=== PATIENT | female | born 1990 ===

== ENCOUNTER 2019-08-29 11:50 | Inpatient (IN) | payer BC ==
[2019-08-29 13:11] VITALS: BMI 26.3
[2019-08-29 14:08] LABS: EOS % 0.1 % (0-4.5); HEMOGLOBIN 12.2 GM/dL (10.7-15.3); LYMPH % 7.9 % (8-40); MCH 30.6 pg (25.7-33.7); MCHC 33.8 g/dl (32.0-36.0); MEAN CELL VOLUME 90.6 fl (80-96); MEAN PLT VOLUME 9.9 fl (7.5-11.1); MONO % 5.4 % (3.8-10.2); NEUT % 86.6 % (42.8-82.8); PLATELET COUNT 205 K/MM3 (134-434); RBC 3.98 M/mm3 (3.60-5.2); WHITE BLOOD COUNT 16.1 K/mm3 (4.0-10.0)
[2019-08-29] MEDS ORDERED: OXYTOCIN 30 UNITS in 0.9% NS 30 UNIT/500 ML INFUS.BAG IVPB ONE (14:22)
[2019-08-29 14:37] LABS: BLOOD UREA NITROGEN 5.6 mg/dL (7-18); CALCIUM 8.7 mg/dL (8.5-10.1); CREATININE 0.5 mg/dL (0.55-1.3); POTASSIUM 4.7 mmol/L (3.5-5.1)
[2019-08-29 14:39] LABS: INR 0.91 (0.83-1.09); PROTHROMBIN TIME (PATIENT) 10.7 SEC (9.7-13.0)
[2019-08-29 14:41] LABS: ACTIVATED PTT 27.2 SECONDS (25.2-36.5)
[2019-08-29] MEDS ORDERED: ELECTROLYTE-148 SOLN 1,000 ML IV SCH (15:45)
[2019-08-29] MEDS ORDERED: FENTANYL/BUPIVACAINE/NS/PF - PCEA - 50 ML DISP.SYRIN EP ONE (15:46)
--- NOTE | 2019-08-29 15:51 | HP ---
Past Medical History - Primary Care Physician PCP:: Shaquille White - Admission Chief Complaint: 28yo P0 with at EGA 39w1d admitted with early spontaneous labor. History of Present Illness: SROM with clear fluid at 9:30am. 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: No: Alzheimer's, CVA, Dementia, Migraine, Multiple Sclerosis, Peripheral Neuropathy, Parkinson's, Seizure, Syncope, TIA, Vertigo, Other Cardiovascular: No: AFIB, Aneurysm, Aortic Insufficiency, Aortic Stenosis, CAD, CHF, Deep Vein Thrombosis, HTN, Hyperlipdemia, [place], Mitral Insufficiency, Mitral Stenosis, Murmur, Pulmonary Hypertension, Other Pulmonary: No: Asthma, Bronchitis, Cancer, COPD, O2 Dependent, Pneumonia, Previously Intubated, Pulmonary Embolus, Pulmonary Fibrosis, Sleep Apnea, Other Gastrointestinal: No: Ascites, Cancer, Constipation, Crohn's Disease, Diverticulitis, Diverticulosis, Esophageal Varices, Gastritis, GERD, GI Bleed, Hemorrhoids, Hiatal Hernia, Inflamatory Bowel Disease, Irritable Bowel Disease, Pancreatitis, Peptic Ulcer Disease, Ulcerative Colitis, Other Hepatobiliary: No: Cirrhosis, Cholelithiasis, Cholecystitis, Choledocholithiasis , Hepatitis A, Hepatitis B, Hepatitis C, Other Renal/: No: Renal Failure, Renal Inusuff, BPH, Cancer, Hematuria, Hemodialysis , Neurogenic Bladder, Renal Calculi, UTI, Other Reproductive: No: Ectopic , Endometriosis, Fibroids, PID, Polycystic Ovary Syndrome, Postmenopausal, Other ...: 1 ...Para: 0 ...Term: 0 ...: 0 ...Spon : 0 ...Induced : 0 ...Multiple Gestation: 0 ...EDC by Sono: 09/04/19 Heme/Onc: No: Anemia, B12 Deficiency, Bleeding Disorder, Cancer, Current Chemotherapy, Current Radiation Therapy, Hemochromatosis, Hypercoaguable State, Myeloproliferative Synd, Sickle Cell Disease, Sickle Cell Trait, Thrombocytopenia, Other Infectious Disease: No: AIDS, C-Diff, Herpes Zoster, HIV, MRSA, STD's, Tuberculosis, VREF, Other Psych: No: Addictions, Anxiety, Bipolar, Depression, Panic, Psychosis, Schizophrenia, Other Musculoskeletal: No: Bursitis, Chronic low back pain, Hemiparesis, Hemiplegia, Osteoarthritis, Paraplegia, Other Rheumatology: No: Fibromyalgia, Gout, Lupus, Rheumatoid Arthritis, Sarcoidosis, Vasculitis, Other ENT: No: Allergic Rhinitis, Sinusitis, Other Endocrine: No: Woods's Disease, Jaye's Disease, Diabetes Insipidus, Diabetes Mellitus, Hyperparathyroidism, Hyperthyroidism, Hypothyroidism, Osteopenia, SIADH, Other Dermatology: No: Basal Cell, Cellulitis, Eczema, Melanoma, Psoriasis, Squamous Cell, Other - Past Surgical History Past Surgical History: Yes: None Hx Myomectomy: No Hx Transabdominal Cerclage: No - Smoking History Smoking history: Never smoked Have you smoked in the past 12 months: No - Alcohol/Substance Use Hx Alcohol Use: No History of Substance Use: reports: None - Social History Usual Living Arrangement: Yes: With Spouse Do you think of yourself as: Straight/Heterosexual ADL: Independent History of Recent Travel: No Home Medications - Allergies Allergies/Adverse Reactions: Allergies Allergy/AdvReac Type Severity Reaction Status Date / Time No Known Allergies Allergy Verified 08/29/19 12:09 - Home Medications Home Medications: Ambulatory Orders Vits96/Iron Fum/Folic [ Tablet] 1 tab PO DAILY 08/29/19 Family Medical History Family History: Denies Review of Systems - Review of Systems Constitutional: reports: Other (Labor pain) Eyes: reports: No Symptoms HENT: reports: No Symptoms Neck: reports: No Symptoms Cardiovascular: reports: No Symptoms Respiratory: reports: No Symptoms Gastrointestinal: reports: No Symptoms Genitourinary: reports: No Symptoms Breasts: reports: No Symptoms Reported Musculoskeletal: reports: No Symptoms Integumentary: reports: No Symptoms Neurological: reports: No Symptoms Endocrine: reports: No Symptoms Hematology/Lymphatic: reports: No Symptoms Psychiatric: reports: No Symptoms Pain Intensity: 10 Physical Exam - Maternity Vital Signs: Vital Signs Temperature 98.9 F 08/29/19 15:00 Pulse Rate 86 08/29/19 15:00 Respiratory Rate 20 08/29/19 15:00 Blood Pressure 123/59 L 08/29/19 15:00 O2 Sat by Pulse Oximetry (%) Constitutional: Yes: Well Nourished, Moderate Distress (with contractions) Eyes: Yes: WNL, Conjunctiva Clear, EOM Intact HENT: Yes: WNL, Atraumatic, Normocephalic Neck: Yes: WNL, Supple, Trachea Midline Cardiovascular: Yes: WNL, Regular Rate and Rhythm Lungs: Clear to auscultation, Normal air movement Breast(s): Yes: WNL - Abdominal Exam/OB Fundal Height: 38 Number of Fetuses: Single Presentation: Vertex Contractions: Yes Regularity: Regular Intensity: Mod/Strong Monitor Mode: External Heart Rate (range): 125 Heart Rate Location: Midline Category: I Accelerations: Non-Uniform Decelerations: Variable (occasional) - Vaginal Exam/OB Vaginal Bleediing: Yes Speculum Exam: No Dilatation (cm): 3 Effacement (%): 50 Amniotic Membrane Status: Leaking Nitrazine Test: Positive Amniotic Fluid: Yes: Clear Presentation: Vertex/Position Station: -3 (Gynecoid pelvimetry) - Physical Exam Musculoskeletal: Yes: WNL Extremities: Yes: WNL Edema: No Integumentary: Yes: WNL Deep Tendon Reflex Grade: Normal +2 ...Motor Strength: WNL Psychiatric: Yes: WNL, Alert, Oriented - Labs Lab Results: CBC, BMP 08/29/19 13:45 08/29/19 13:45 Hemorrhage Risk Assessment - Risk Factors Medium Risk Factors: Yes: None High Risk Factors: Yes: None Risk Score: 1 Risk Level: Medium Risk Imaging - Results Ultrasound: Report Reviewed Assessment/Plan 28yo P0 with at EGA 39w1d admitted with early spontaneous labor. Fetus with Category I tracing. Pt is in latent labor. She requested epidural. Anesthesia was called.
[2019-08-29] MEDS ORDERED: LIDO 2%/EPI 1:200000 PRESRVFRE (20 ML SDVIAL) ONE (16:06)
[2019-08-29] MEDS ORDERED: BUPIVACAINE HCL/PF 0.25% (2.5MG/ML) 10 ML VIAL ONE (16:06)
[2019-08-29] MEDS ORDERED: NALOXONE HCL 0.4 MG/ML VIAL IVPUSH PRN (16:29)
[2019-08-29] MEDS ORDERED: FENTANYL/BUPIVACAINE/NS/PF - PCEA - 50 ML DISP.SYRIN EP SCH (16:30)
[2019-08-29] MEDS ORDERED: OXYTOCIN 20 UNITS in 0.9% NS 20 UNIT/1,000 ML INFUS.BAG IV ONE ×2 (17:09→20:24)
[2019-08-29] MEDS: OXYTOCIN 20 UNITS in 0.9% NS 20 UNIT/1,000 ML INFUS.BAG IV SCH (18:12)
[2019-08-29] MEDS ORDERED: OXYTOCIN 10 UNITS/ML VIAL ONE (18:24)
[2019-08-29] MEDS ORDERED: BENZOCAINE 20% 57 GM BOTTLE TP PRN (18:51)
[2019-08-29] MEDS ORDERED: BISACODYL 10 MG SUPP.RECT RC PRN (18:51)
[2019-08-29] MEDS ORDERED: BENZOCAINE 28 GM HEMORRHOIDAL OINTMENT TP PRN (18:51)
[2019-08-29] MEDS ORDERED: METHYLERGONOVINE MALEATE 0.2 MG/1 ML AMP IM PRN (18:51)
[2019-08-29] MEDS ORDERED: WITCH HAZEL 50% (TUCKS) 40 PAD/JAR PAD TP PRN (18:51)
--- NOTE | 2019-08-29 18:54 | PN ---
Delivery - Delivery Vaginal Delivery: No Problems, Spontaneous Type of Anesthesia: Epidural Episiotomy/Laceration: 2nd degree (also with a sulcus tear) EBL (cc): 350 Delivery, Single - Stages of Labor Date 1st Stage Initiatied: 08/29/19 Time 1st Stage Initiated: 09:30 Date 2nd Stage Initiated: 08/29/19 Time 2nd Stage Initiated: 17:20 Date of Delivery: 08/29/19 Time of Delivery: 18:07 Time Placenta Delivered: 18:12 Placenta: Yes: Spontaneous, Normal Configuration - Condition of Printing Shop Supervisor/Street Light Repairer Present: No Infant Gender: Female Position: Right, OA Total Hours ROM (Hrs/Mins): 8 hrs 42 minutes - 1 Minute Total Score: 9 5 Minutes Total Score: 9 - [place] Feeding Plan Initial Plan: Exclusive throughout hospitalization Benefits of Exclusively reinforced: Yes Remarks - Remarks Remarks: Uncomplicated . Nuchal cord x 1.
[2019-08-30] MEDS: OXYTOCIN 20 UNITS in 0.9% NS 20 UNIT/1,000 ML INFUS.BAG IV SCH (01:34)
[2019-08-30 07:35] LABS: BASO % 0.1 % (0-2.0); EOS % 0.1 % (0-4.5); HEMATOCRIT 29.5 % (32.4-45.2); HEMOGLOBIN 9.8 GM/dL (10.7-15.3); LYMPH % 9.4 % (8-40); MCH 30.4 pg (25.7-33.7); MCHC 33.3 g/dl (32.0-36.0); MEAN CELL VOLUME 91.5 fl (80-96); MEAN PLT VOLUME 9.8 fl (7.5-11.1); MONO % 6.1 % (3.8-10.2); NEUT % 84.3 % (42.8-82.8); PLATELET COUNT 195 K/MM3 (134-434); RBC 3.22 M/mm3 (3.60-5.2); RDW 13.1 % (11.6-15.6); WHITE BLOOD COUNT 18.2 K/mm3 (4.0-10.0)
[2019-08-30] MEDS: PRENATAL VITAMINS W/ FOLIC ACID TABLET (FP) PO SCH (10:06)
--- NOTE | 2019-08-30 10:06 | PN ---
Post Progress Note - Subjective Subjective: Patient without acute complaints. Feels well. Reports tolerating oral intake without nausea or vomiting. Ambulating without dizziness. Denies fevers or chills. Pain well controlled with oral pain medication. Pumping/breast feeding without issue. Passing flatus, no BM yet. Post Day: 1 Type of Delivery: Vital Signs: Vital Signs Temperature 97.9 F 08/30/19 05:48 Pulse Rate 92 H 08/30/19 05:48 Respiratory Rate 20 08/30/19 05:48 Blood Pressure 108/60 08/30/19 05:48 O2 Sat by Pulse Oximetry (%) 97 08/29/19 21:00 Breast Exam: Yes: Soft Uterus: Yes: Fundus Firm, Fundus below umbilicus, Non-tender Abdomen/GI: Yes: Abdomen soft, Passing flatus, Tolerating PO Lochia: Yes: Rubra Lochia, amount: Small Extremities: Yes: Calves non-tender Perineum: Yes: Laceration (repair intact) Activity: Ambulating - Labs Labs: CBC WBC 18.2 K/mm3 (4.0-10.0) H 08/30/19 07:00 RBC 3.22 M/mm3 (3.60-5.2) L 08/30/19 07:00 Hgb 9.8 GM/dL (10.7-15.3) L 08/30/19 07:00 Hct 29.5 % (32.4-45.2) L D 08/30/19 07:00 MCV 91.5 fl (80-96) 08/30/19 07:00 MCH 30.4 pg (25.7-33.7) 08/30/19 07:00 MCHC 33.3 g/dl (32.0-36.0) 08/30/19 07:00 RDW 13.1 % (11.6-15.6) 08/30/19 07:00 Plt Count 195 K/MM3 (134-434) 08/30/19 07:00 MPV 9.8 fl (7.5-11.1) 08/30/19 07:00 Absolute Neuts (auto) 15.4 K/mm3 (1.5-8.0) H 08/30/19 07:00 Neutrophils % 84.3 % (42.8-82.8) H 08/30/19 07:00 Lymphocytes % 9.4 % (8-40) 08/30/19 07:00 Monocytes % 6.1 % (3.8-10.2) 08/30/19 07:00 Eosinophils % 0.1 % (0-4.5) 08/30/19 07:00 Basophils % 0.1 % (0-2.0) D 08/30/19 07:00 Nucleated RBC % 0 % (0-0) 08/30/19 07:00 Assessment/Plan 28yo P1 s/p , doing well stable, afebrile. Asymptomatic for anemia. care instructions reviewed. Continue routine care. Ambulation encouraged Discharge instruction reviewed.
--- NOTE | 2019-08-30 10:12 | DS ---
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 Vital Signs: Vital Signs Temperature 97.9 F 08/30/19 05:48 Pulse Rate 92 H 08/30/19 05:48 Respiratory Rate 20 08/30/19 05:48 Blood Pressure 108/60 08/30/19 05:48 O2 Sat by Pulse Oximetry (%) 97 08/29/19 21:00 Constitutional: Yes: Well Nourished, No Distress, Calm Eyes: Yes: WNL, Conjunctiva Clear, EOM Intact HENT: Yes: WNL, Atraumatic, Normocephalic Neck: Yes: WNL, Supple, Trachea Midline Cardiovascular: Yes: WNL, Regular Rate and Rhythm Respiratory: Yes: WNL, Regular, CTA Bilaterally Gastrointestinal: Yes: WNL, Normal Bowel Sounds, Soft ...Rectal Exam: Yes: Deferred Renal/: Yes: WNL ....Post : Yes: Uterus firm, Uterus non-tender, Slight lochia rubra Breast(s): Yes: WNL Musculoskeletal: Yes: WNL Extremities: Yes: WNL Edema: No Integumentary: Yes: WNL Neurological: Yes: WNL, Alert, Oriented ...Motor Strength: WNL Psychiatric: Yes: WNL, Alert, Oriented Labs: CBC, BMP 08/30/19 07:00 08/29/19 13:45 Delivery - Delivery Vaginal Delivery: No Problems, Spontaneous Type of Anesthesia: Epidural Episiotomy/Laceration: 2nd degree EBL (cc): 350 Delivery, Single - Stages of Labor Date 1st Stage Initiatied: 08/29/19 Time 1st Stage Initiated: 09:30 Date 2nd Stage Initiated: 08/29/19 Time 2nd Stage Initiated: 17:20 Date of Delivery: 08/29/19 Time of Delivery: 18:07 Date Placenta Delivered: 08/29/19 Time Placenta Delivered: 18:12 Placenta: Yes: Spontaneous, Normal Configuration - Condition of Substance Abuse Nurse/Oil Refinery Process Technician Present: No Gender: Female Weight: 3.062 kg Position: Right, OA Total Hours ROM (Hrs/Mins): 8 hrs 42 minutes - 1 Minute Total Score: 9 5 Minutes Total Score: 9 - Feeding Plan Initial Plan: Exclusive throughout hospitalization Benefits of Exclusively reinforced: Yes Remarks - Remarks Remarks: Uncomplicated . Nuchal cord x 1. Discharge Summary Problems reviewed: Yes Reason For Visit: ADMIT LABOR Current Active Problems Vaginal delivery (Acute) Procedures: Principal: Other Procedures: Repair 2nd degree OB laceration Hospital Course: Normal recovery Health Concerns: anemia Goals: Full recovery Condition: Good - Instructions Diet, Activity, Other Instructions: Physical activity Resume your normal everyday activity as tolerated no heavy lifting or exercise until seen by your surgeon. You may walk unlimited prince of and climb stairs. You may resume driving the car when you feel safe and comfortable behind the wheel. No sexual activity as instructed. Wound care If you have a bandage, leave it on, and keep dry for 48-72 hours. After that time discard the outer bandage. If they are tapes on the skin under the out of bandage leave them in place. They will peel off in the next 7 to 10 days. Do Not Peel them off. You may shower the day after surgery. If there are tapes present on the skin, you may shower over them. Diet There are no dietary restrictions. Eat healthy, high-fiber foods. Drink 6 to 8 glasses of liquid each day. This will assist in keeping your bowels are regular. Pain management You may take Tylenol or acetaminophen or Ibuprofen (for example, Motrin, Advil etc.) from my pain prescription medication is ordered should be taken as prescribed for moderate to severe pain. Call MD for any of the following: Severe pain not relieved by medication Fever of 101 or higher Excessive bleeding or drainage on dressing Inability to urinate Referrals: Radha Harden MD [Staff Physician] - 1 Month Disposition: HOME - Home Medications Comprehensive Discharge Medication List: Ambulatory Orders Vits96/Iron Fum/Folic [ Tablet] 1 tab PO DAILY 08/29/19 Prescription Drug Monitoring Program (I-STOP) results: I-STOP not reviewed
[2019-08-30] MEDS: IBUPROFEN 600 MG TABLET (FP) PO PRN ×2 (12:06→19:30)
[2019-08-30] MEDS: ACETAMINOPHEN 325 MG TABLET (FP) PO PRN ×2 (12:07→19:31)
[2019-08-30 12:53] LABS: POC NITRAZINE POS
[2019-08-30] MEDS ORDERED: SENNOSIDES/DOCUSATE COMBO (SENNA PLUS) TABLET (UD) PO PRN (22:00)
[2019-08-31] MEDS: IBUPROFEN 600 MG TABLET (FP) PO PRN ×2 (03:37→10:48)
[2019-08-31] MEDS: ACETAMINOPHEN 325 MG TABLET (FP) PO PRN ×2 (03:38→10:49)
[2019-08-31] MEDS: PRENATAL VITAMINS W/ FOLIC ACID TABLET (FP) PO SCH (10:48)
[2019-08-31 16:16] VITALS: BP 122/76; PULSE 92; TEMP 97.6
== END 2019-08-31 13:15 | disposition home or self-care (01) | DRG 807 ==
LOC: JLDR 11:50 → J3W 22:16
PROVIDERS: ADMIT Obstetrics & Gynecology; ATTEND Obstetrics & Gynecology
PROC: 0KQM0ZZ Repair Perineum Muscle, Open Approach (ICD-10-PCS; principal; 2019-08-29)
PROC: 10E0XZZ Delivery of Products of Conception, External Approach (ICD-10-PCS; 2019-08-29)
DX: O70.1 Second degree perineal laceration during delivery (principal); Z37.0 Single live birth; Z3A.39 39 weeks gestation of pregnancy
CPT/HCPCS: 36415; 59409; 80048; 83986-QW; 85025; 85610; 85730; 86593; 86850; 86900; 86901; 87389

== ENCOUNTER 2021-09-27 01:30 | Inpatient (IN) | payer BC ==
[2021-09-27 02:04] LABS: BASO % 0.1 % (0-2.0); EOS % 0.3 % (0-4.5); HEMATOCRIT 35.6 % (32.4-45.2); HEMOGLOBIN 11.9 GM/dL (10.7-15.3); LYMPH % 10.6 % (8-40); MCH 29.8 pg (25.7-33.7); MCHC 33.4 g/dl (32.0-36.0); MEAN CELL VOLUME 89.2 fl (80-96); MEAN PLT VOLUME 9.2 fl (7.5-11.1); MONO % 4.3 % (3.8-10.2); NEUT % 84.7 % (42.8-82.8); PLATELET COUNT 208 10^3/uL (134-434); RBC 3.99 M/mm3 (3.60-5.2); RDW 13.5 % (11.6-15.6); WHITE BLOOD COUNT 13.5 K/mm3 (4.0-10.0)
[2021-09-27 02:11] LABS: INR 0.91 (0.83-1.09); PROTHROMBIN TIME (PATIENT) 10.4 SEC (9.7-13.0)
[2021-09-27 02:13] LABS: ACTIVATED PTT 30.5 SECONDS (25.2-36.5)
[2021-09-27] MEDS ORDERED: FENTANYL/BUPIVACAINE/NS/PF - PCEA - 50 ML DISP.SYRIN EP ONE (02:14)
[2021-09-27] MEDS ORDERED: CITRIC ACID/SODIUM CITRATE 30 ML UNIT-DOSE CUP PO ONE (02:17)
[2021-09-27] MEDS ORDERED: BUPIVACAINE HCL/PF 0.25% (2.5MG/ML) 10 ML VIAL ONE (02:22)
[2021-09-27 02:25] LABS: BLOOD UREA NITROGEN 8.1 mg/dL (7-18); CALCIUM 8.8 mg/dL (8.5-10.1)
[2021-09-27 02:28] LABS: CREATININE 0.5 mg/dL (0.55-1.3)
[2021-09-27] MEDS ORDERED: ELECTROLYTE-148 SOLN 1,000 ML IV SCH (02:30)
[2021-09-27 02:46] VITALS: BMI 25.7
[2021-09-27] MEDS ORDERED: OXYTOCIN 30 UNITS in 0.9% NS 30 UNIT/500 ML INFUS.BAG IVPB ONE (02:57)
[2021-09-27] MEDS ORDERED: OXYTOCIN 30 UNITS in 0.9% NS 30 UNIT/500 ML INFUS.BAG IVPB SCH (03:00)
[2021-09-27] MEDS ORDERED: NALOXONE HCL 0.4 MG/ML VIAL IVPUSH PRN (03:04)
[2021-09-27] MEDS ORDERED: FENTANYL/BUPIVACAINE/NS/PF - PCEA - 50 ML DISP.SYRIN EP SCH ×2 (03:15→03:25)
[2021-09-27] MEDS ORDERED: OXYTOCIN 20 UNITS in 0.9% NS 20 UNIT/1,000 ML INFUS.BAG IV ONE (03:43)
[2021-09-27] MEDS ORDERED: OXYTOCIN 20 UNITS in 0.9% NS 20 UNIT/1,000 ML INFUS.BAG IV SCH ×2 (05:00→08:15)
[2021-09-27] MEDS ORDERED: METHYLERGONOVINE MALEATE 0.2 MG/1 ML AMP IM PRN ×2 (06:45→08:13)
[2021-09-27] MEDS ORDERED: BISACODYL 10 MG SUPP.RECT RC PRN ×2 (06:45→08:13)
[2021-09-27] MEDS ORDERED: ACETAMINOPHEN 325 MG TABLET (FP) PO PRN ×2 (06:45→08:13)
[2021-09-27] MEDS ORDERED: BENZOCAINE 20% 57 GM BOTTLE TP PRN ×2 (06:45→08:13)
[2021-09-27] MEDS ORDERED: WITCH HAZEL 50% (TUCKS) 40 PAD/JAR PAD TP PRN (06:45)
[2021-09-27] MEDS ORDERED: BENZOCAINE 28 GM HEMORRHOIDAL OINTMENT TP PRN ×2 (06:45→08:13)
[2021-09-27] MEDS ORDERED: IBUPROFEN 600 MG TABLET (FP) PO PRN (08:13)
[2021-09-27] MEDS ORDERED: oxyCODONE HCL 5 MG TABLET PO PRN (08:13)
[2021-09-27] MEDS: PRENATAL VITAMINS W/ FOLIC ACID TABLET (FP) PO SCH (09:33)
[2021-09-27] MEDS: IBUPROFEN 600 MG TABLET (FP) PO PRN (09:33)
[2021-09-28] MEDS: IBUPROFEN 600 MG TABLET (FP) PO PRN ×3 (00:03→22:56)
[2021-09-28] MEDS: SENNOSIDES/DOCUSATE COMBO (SENNA PLUS) TABLET (UD) PO PRN ×2 (00:03→22:56)
[2021-09-28 08:43] LABS: BASO % 0.2 % (0-2.0); EOS % 0.9 % (0-4.5); HEMATOCRIT 33.4 % (32.4-45.2); HEMOGLOBIN 11.2 GM/dL (10.7-15.3); LYMPH % 15.9 % (8-40); MCH 30.1 pg (25.7-33.7); MCHC 33.5 g/dl (32.0-36.0); MEAN CELL VOLUME 89.8 fl (80-96); MONO % 6.9 % (3.8-10.2); NEUT % 76.1 % (42.8-82.8); PLATELET COUNT 174 10^3/uL (134-434); RBC 3.72 M/mm3 (3.60-5.2); RDW 13.4 % (11.6-15.6); WHITE BLOOD COUNT 10.8 K/mm3 (4.0-10.0)
[2021-09-28] MEDS: PRENATAL VITAMINS W/ FOLIC ACID TABLET (FP) PO SCH (09:13)
[2021-09-28 20:11] VITALS: PULSE 84; TEMP 98.2
[2021-09-28] MEDS ORDERED: SENNOSIDES/DOCUSATE COMBO (SENNA PLUS) TABLET (UD) PO PRN (22:00)
[2021-09-29] MEDS: PRENATAL VITAMINS W/ FOLIC ACID TABLET (FP) PO SCH (09:17)
[2021-09-29] MEDS: IBUPROFEN 600 MG TABLET (FP) PO PRN (09:17)
[2021-09-29 10:27] VITALS: BP 111/52
== END 2021-09-29 12:55 | disposition home or self-care (01) | DRG 807 ==
LOC: JLDR 01:30 → J3W 08:15
PROVIDERS: ADMIT Obstetrics & Gynecology; ATTEND Obstetrics & Gynecology
PROC: 10E0XZZ Delivery of Products of Conception, External Approach (ICD-10-PCS; principal; 2021-09-27)
PROC: 0KQM0ZZ Repair Perineum Muscle, Open Approach (ICD-10-PCS; 2021-09-27)
PROC: 0W8NXZZ Division of Female Perineum, External Approach (ICD-10-PCS; 2021-09-27)
DX: O70.1 Second degree perineal laceration during delivery (principal); Z3A.38 38 weeks gestation of pregnancy; Z37.0 Single live birth
CPT/HCPCS: 36415; 59409; 80048; 85025; 85610; 85730; 86780; 86850; 86900; 86901; C9803-CS; U0003; U0005